=== PATIENT | male | born 1975 | race Caucasian/White ===

== ENCOUNTER 2017-02-15 17:02 | Emergency (ER) | payer BC ==
[2017-02-15] MEDS ORDERED: Acetaminophen/HYDROcodone 325-5 MG Tab ONE (17:15)
[2017-02-15 17:34] VITALS: BP 146/97
--- NOTE | 2017-02-15 17:37 | EDM.PDOC ---
ED HPI GENERAL MEDICAL PROBLEM - General Chief Complaint: General Stated Complaint: abcessed tooth Time Seen by Provider: 02/15/17 17:05 - History of Present Illness INITIAL COMMENTS - FREE TEXT/NARRATIVE: According to patient he has been having numbness in the right chin and lower cheek today. He has abscessed right lower premolar for which he has been taking Amox since Friday. HAs seen Dr. Ortiz in [facility] for the infection. He claims that pain has got worse today, he has a constant pain in his right lower jaw which he rates at 7/10 and ibuprofen is not helping with pain. Also about 45 minutes ago, patient was driving and he noticed numbness in his left forearm over the medial aspect and the medial 2 finger have gone numb too. He was having his left arm on the window of the truck. also now in the emergency room claims that he is starting have numbness of the right forearm and the medial 2 finger of the right hand too. After few minutes he is saying his thumbs are going numb. He does claim he feels anxious. No chest pain, no nausea of vomiting. no fever or chills. No diaphoresis, shortness of breath. No other complaints. Onset: Today Severity: Mild Improves with: Reports: None Worsens with: Reports: None Associated Symptoms: Denies: Confusion, Chest Pain, Cough, Diaphoresis, Fever/ Chills, Headaches, Nausea/Vomiting, Rash, Seizure, Shortness of Breath, Syncope , Weakness - Related Data Allergies Allergy/AdvReac Type Severity Reaction Status Date / Time No Known Allergies Allergy Verified 01/27/16 14:07 Home Meds: Home Meds Dextroamphetamine/Amphetamine [Adderall 20 mg Tablet] 20 mg PO DAILY 01/27/16 [ History] Past Medical History Respiratory History: Reports: Asthma Psychiatric History: Reports: ADD Social & Family History - Family History Family Medical History: Unobtainable - Tobacco Use Smoking Status *Q: Current Every Day Smoker Years of Tobacco use: 24 Packs/Tins Daily: 0.5 Second Hand Smoke Exposure: Yes - Recreational Drug Use Recreational Drug Use: No ED ROS GENERAL - Review of Systems Review Of Systems: See Below Constitutional: Denies: Fever, Chills HEENT: Reports: Dental Pain. Denies: Eye Discharge, Nose Pain, Rhinitis, Throat Pain, Throat Swelling, Vision Change Respiratory: Denies: Shortness of Breath, Wheezing, Cough, Sputum Cardiovascular: Denies: Chest Pain, Lightheadedness GI/Abdominal: Denies: Abdominal Pain, Nausea, Vomiting Musculoskeletal: Denies: Joint Pain, Joint Swelling Skin: Denies: Pruritis, Rash Neurological: Reports: Numbness, Tingling. Denies: Confusion, Dizziness, Paresthesia, Tremors, Change in Speech, Gait Disturbance Psychiatric: Denies: Agitation, Anxiety, Confusion ED EXAM, GENERAL - Physical Exam Exam: See Below Exam Limited By: No Limitations General Appearance: Alert, WD/WN, Anxious, Mild Distress (from right jaw pain) Eye Exam: Bilateral Eye: EOMI, PERRL Ears: Normal External Exam, Normal Canal, Hearing Grossly Normal, Normal TMs Ear Exam: Bilateral Ear: Auricle Normal, Canal Normal, TM normal Nose: Normal Inspection, Normal Mucosa, No Blood Throat/Mouth: Normal Inspection, Normal Lips, Normal Voice, No Airway Compromise , Other (there is erythem anad swelling of the gingiva over the right lower cannine and premolar region with tenderness. Pt has numbness over the right chin and lower lip region.) Head: Atraumatic, Normocephalic Neck: Normal Inspection, Supple, Non-Tender, Full Range of Motion Respiratory/Chest: No Respiratory Distress, Lungs Clear, Normal Breath Sounds, No Accessory Muscle Use, Chest Non-Tender Cardiovascular: Normal Peripheral Pulses, No Edema, No Gallop, No JVD, No Murmur , No Rub, Tachycardia GI/Abdominal: Normal Bowel Sounds, Soft, Non-Tender, No Organomegaly, No Distention, No Abnormal Bruit, No Mass Neurological: Alert, Oriented, CN II-XII Intact, Normal Cognition, Normal Gait, Normal Reflexes, Other (Pt has tingling in the medail 2 finger of the left and right hand,left worse than the right.) EKG INTERPRETATION EKG Date: 02/15/17 Rhythm: NSR Rate (Beats/Min): 116 Raymond: Normal P-Wave: Present QRS: Normal ST-T: Normal QT: Normal Course - Vital Signs Text/Narrative:: Apparently patient has 3 issues ; 1) he has right lower jaw tooth infection with swelling. Swelling is causing the mental nerve compression on the right side and causing the numbness of the right chin. Further pt claims that the numbness in his face was spreading, but on neuro exam for fine touch and crude touch , pt has numbness only over right chin and lower lip region. 2) Ulnar neuritis. Pt has ulnar nerve irritation in the elbow causing his numbness in the medial finger of the hand as he was driving when it started and abduction of the arms irritates the nerve in the elbow causing the numbness. Considering pt's numbness EKG was done and he is in sinus tachycardia. 3) Anxiety:Pt does claim he is anxious.His tingling of the hands and face could be getting worse secondary to his anxiety. As he appears worked up about his symptoms. To reassured him, I am getting CT head to rule out stoke, troponin to rule out cardiac injury and CBC to check his white count. Pt's Troponin is negative, CT head is normal, His white count is normal. Pt reassured that he is not having stroke or NV. The numbness in his hands should gradually improve. The numbness in his face will resolve once the infection clears. For the jaw pain, I have advised patient to alternate motrin 800mg with vicodin every 4 hrs [address] followup with Dr. Ortiz. Pt is hemodynamically stable at the time of discharge. Last Recorded V/S: Last Vital Signs Temp 98.7 F 02/15/17 17:10 Pulse 116 H 02/15/17 17:10 Resp BP 146/97 H 02/15/17 17:10 Pulse Ox 99 02/15/17 17:10 - Orders/Labs/Meds Orders: Active Orders 24 hr Category Date Time Status EKG Documentation Completion [RC] ASDIRECTED Care 02/15/17 17:34 Active Head wo Cont [CT] Stat Exams 02/15/17 17:33 Taken CBC WITH AUTO DIFF [HEME] Stat Lab 02/15/17 17:37 Ordered TROPONIN I [CHEM] Stat Lab 02/15/17 17:37 Ordered EKG 12 Lead [EK] Routine Ther 02/15/17 17:34 Ordered Departure - Departure Time of Disposition: 18:30 Disposition: Home, Self-Care 01 Condition: Fair Clinical Impression: Facial numbness, Ulnar neuritis - Discharge Information Forms: ED Department Discharge Additional Instructions: Apparently patient has 3 issues ; 1) he has right lower jaw tooth infection with swelling. Swelling is causing the mental nerve compression on the right side and causing the numbness of the right chin. Further pt claims that the numbness in his face was spreading, but on neuro exam for fine touch and crude touch , pt has numbness only over right chin and lower lip region. 2) Ulnar neuritis. Pt has ulnar nerve irritation in the elbow causing his numbness in the medial finger of the hand as he was driving when it started and abduction of the arms irritates the nerve in the elbow causing the numbness. Considering pt's numbness EKG was done and he is in sinus tachycardia. 3) Anxiety:Pt does claim he is anxious.His tingling of the hands and face could be getting worse secondary to his anxiety. As he appears worked up about his symptoms. To reassured him, I am getting CT head to rule out stoke, troponin to rule out cardiac injury and CBC to check his white count. Pt's Troponin is negative, CT head is normal, His white count is normal. Pt reassured that he is not having stroke or NV. The numbness in his hands should gradually improve. The numbness in his face will resolve once the infection clears. For the jaw pain, I have advised patient to alternate motrin 800mg with vicodin every 4 hrs [address] followup with Dr. Ortiz. Pt is hemodynamically stable at the time of discharge. - Problem List & Annotations (1) Facial numbness SNOMED Code(s): 207230769 Code(s): R20.0 - ANESTHESIA OF SKIN Status: Acute Current Visit: Yes (2) Ulnar neuritis SNOMED Code(s): 33587929 Code(s): G56.20 - LESION OF ULNAR NERVE, UNSPECIFIED UPPER LIMB Status: Acute Current Visit: Yes - Problem List Review Problem List Initiated/Reviewed/Updated: Yes - My Orders Last 24 Hours: My Active Orders 02/15/17 17:33 Head wo Cont [CT] Stat 02/15/17 17:34 EKG Documentation Completion [RC] ASDIRECTED EKG 12 Lead [EK] Routine 02/15/17 17:37 CBC WITH AUTO DIFF [HEME] Stat TROPONIN I [CHEM] Stat - Assessment/Plan Last 24 Hours: My Active Orders 02/15/17 17:33 Head wo Cont [CT] Stat 02/15/17 17:34 EKG Documentation Completion [RC] ASDIRECTED EKG 12 Lead [EK] Routine 02/15/17 17:37 CBC WITH AUTO DIFF [HEME] Stat TROPONIN I [CHEM] Stat Assessment:: Right facial numbness from right mental nerve compression Ulnar neuritis Plan: Apparently patient has 3 issues ; 1) he has right lower jaw tooth infection with swelling. Swelling is causing the mental nerve compression on the right side and causing the numbness of the right chin. Further pt claims that the numbness in his face was spreading, but on neuro exam for fine touch and crude touch , pt has numbness only over right chin and lower lip region. 2) Ulnar neuritis. Pt has ulnar nerve irritation in the elbow causing his numbness in the medial finger of the hand as he was driving when it started and abduction of the arms irritates the nerve in the elbow causing the numbness. Considering pt's numbness EKG was done and he is in sinus tachycardia. 3) Anxiety:Pt does claim he is anxious.His tingling of the hands and face could be getting worse secondary to his anxiety. As he appears worked up about his symptoms. To reassured him, I am getting CT head to rule out stoke, troponin to rule out cardiac injury and CBC to check his white count. Pt's Troponin is negative, CT head is normal, His white count is normal. Pt reassured that he is not having stroke or NV. The numbness in his hands should gradually improve. The numbness in his face will resolve once the infection clears. For the jaw pain, I have advised patient to alternate motrin 800mg with vicodin every 4 hrs [address] followup with Dr. Ortiz. Pt is hemodynamically stable at the time of discharge.
--- NOTE | 2017-02-16 19:29 | CT ---
DATE OF SERVICE: 02/15/2017 CLINICAL DATA: Numbness in his hands and face. UNENHANCED BRAIN CT Multislice acquisition through the brain without IV contrast was performed. No priors. No masses or mass effect. No intracranial hemorrhage. No evidence of acute or subacute infarct. There is mucosal thickening in the ethmoid sinuses. There is a rounded low- density lesion in the right sphenoid sinus consistent with a retention cyst or polyp. No osseous abnormalities. IMPRESSION: No acute intracranial abnormalities. [id number] [facility]
== END 2017-02-15 18:27 | disposition home or self-care (01) ==
LOC: LB.ED 17:02
DX: G58.8 Other specified mononeuropathies (principal); R20.0 Anesthesia of skin; J45.909 Unspecified asthma, uncomplicated; F98.8 Other specified behavioral and emotional disorders with onset usually occurring in childhood and adolescence; F17.210 Nicotine dependence, cigarettes, uncomplicated
CPT/HCPCS: 36415; 70450; 84484; 85025; 93005; 99284; A9270

== ENCOUNTER 2022-12-11 09:10 | Day surgery (SDC) | payer BC ==
[~2022-12-11 09:10] MED LIST: Sodium Chloride 0.9% 1,000 ML IV SCH
[2022-12-11] MEDS ORDERED: Propofol 200 MG/20 ML SDV ONE (11:00)
[2022-12-11] MEDS ORDERED: Glycopyrrolate 0.2 MG/ML 2 ML SDV ONE (11:00)
[2022-12-11 11:12] VITALS: BP 105/70; PULSE 114
== END 2022-12-11 12:00 | disposition home or self-care (01) ==
LOC: LB.SDS 09:10
PROVIDERS: ATTEND Surgery
DX: K21.00 Gastro-esophageal reflux disease with esophagitis, without bleeding (principal); K22.10 Ulcer of esophagus without bleeding; F98.8 Other specified behavioral and emotional disorders with onset usually occurring in childhood and adolescence; J45.909 Unspecified asthma, uncomplicated; Z79.899 Other long term (current) drug therapy
CPT/HCPCS: 88305; 88312; 88342; J2704; J3490; J7030